=== PATIENT | female | born 1960 | race Caucasian/White ===

== ENCOUNTER → 2017-01-10 | Outpatient (CLI) | payer OTHER ==
[2017-01-10 13:31] LABS: Blood Urea Nitrogen 17 mg/dL (7-17); Non-African American GFR(MDRD) 57 (>60 ml/min/1.73 sqM)
--- NOTE | 2017-01-10 20:59 | MR ---
EXAMINATION TYPE: MR brain wo/w con DATE OF EXAM: 01/10/2017 COMPARISON: Prior MRI brain December 10, 2015 and older studies. HISTORY: malig neoplasm frontal lobe b rain per order., f/u, history of cancer and surgery 2008. TECHNIQUE: Multiplanar, multisequence images of the brain and brainstem is performed without and with IV contras t, utilizing 5 mL intravenous Gadavist . FINDINGS: Diffusion weighted images demonstrate no evidence of a recent infarct or other diffusion ab normality. There is mild ventricular and sulcal prominence consistent with mild age-related cerebral atrophy slightly prominent more prominent over bilateral frontal lobes. No significant change from p rior. There are few scattered foci of T2 hyperintensity seen throughout the deep white matter bilater ally. Lesions are nonspecific in appearance and distribution. Approximately 5-8 small scattered lesio ns are redemonstrated. There is redemonstration of area of surgical resection posterior right frontal lobe with adjacent craniotomy changes. Midline structures demonstrate normal morphology. The craniocervical junction appears within normal limits. Post contrast images demonstrate no abnormal enhancement including at surgical site to sugge st neoplastic recurrence. The dural venous sinuses appear patent. The visualized sinuses are clear an d the globes are intact. IMPRESSION: Redemonstration of postsurgical changes posterior right frontal lobe with cavitary defect and adjacent gliosis. There is background mild diffuse cerebral atrophy and chronic small vessel isc hemic change. No significant change from prior. No suspicious enhancing lesions are evident.
== END | disposition home or self-care (01) ==
LOC: RADMRIMAIN 12:56
PROVIDERS: ATTEND Neurological Surgery
DX: C71.1 Malignant neoplasm of frontal lobe (principal); G31.89 Other specified degenerative diseases of nervous system; I67.82 Cerebral ischemia; Z98.890 Other specified postprocedural states
CPT/HCPCS: 82565; 84520; 70553; 36415; A9581

== ENCOUNTER → 2018-04-02 | Outpatient (CLI) | payer OTHER ==
--- NOTE | 2018-04-02 15:57 | MR ---
EXAMINATION TYPE: MR brain wo/w con DATE OF EXAM: 04/02/2018 1:56 PM EXAMINATION TYPE: MR brain wo/w con DATE OF EXAM: 04/02/2018 1:56 PM COMPARISON: 01/10/2017 HISTORY: Malignant neoplasm of brain CONTRAST: Patient received 4.5 mL intravenous Gadavist gadolinium contrast. Multiplanar and multispin-echo imaging of the brain was performed . Pre and post contrast enhanced i mages are obtained. Again noted is evidence of postsurgical change posterior right frontal lobe with cavitary defect rede monstrated and surrounding gliosis. No evidence for pathologic enhancement. No new masses are identif ied. The ventricles, basal cisterns and sulci overlying the cerebral convexities are mildly enlarged. There is evidence of mild periventricular white matter ischemic demyelination. Remote deep white matter insults are also noted. No acute edema is seen on diffusion weighted imaging. There is no evidence for midline shift or mass effect. Acute intracranial hemorrhage or extra-axial collection is not evident. No enhancing lesions are seen. The paranasal sinuses and mastoid air cells are well-aerated. IMPRESSION: 1. No evidence for recurrent or residual mass. Postoperative changes as noted. 2. Age-related atrophic and chronic small vessel ischemic change. No acute intracranial process at t his time. No enhancing lesions are seen.
== END ==
LOC: RADMRIMAIN 12:36
PROVIDERS: ATTEND Psychiatry & Neurology Neurology
DX: G31.9 Degenerative disease of nervous system, unspecified (principal); I67.82 Cerebral ischemia; C71.1 Malignant neoplasm of frontal lobe; Z98.890 Other specified postprocedural states
CPT/HCPCS: 82565; 70553; 36415; A9585

== ENCOUNTER → 2019-08-18 | Outpatient (CLI) | payer OTHER ==
--- NOTE | 2019-08-18 14:17 | MR ---
EXAMINATION TYPE: MR brain wo/w con DATE OF EXAM: 08/18/2019 COMPARISON: 04/02/2018 HISTORY: 59-year-old female C71.9, follow-up Oligodendroglioma TECHNIQUE: Multiplanar, multisequence images of the brain and brainstem were acquired before and aft er administration of 5 mL IV Gadavist. Diffusion weighted imaging is performed. FINDINGS: No evidence for acute infarction, hemorrhage, mass, mass effect, midline shift, herniation, effacemen t of basal cisterns, or extra-axial fluid collection. Redemonstrated lateral right frontal resection cavity with surrounding bright T2 signal. Some minimal debris and septations remain within the resection cavity. No abnormal nodularity or enhancement is i dentified. No new enhancing lesions are seen. Dural venous sinuses are patent. Mild to moderate central cerebral atrophy with secondary mild prominence to the ventricular system. T2/FLAIR weighted sequences also show subtle minimal scattered foci of bright signal change within th e subcortical and periventricular regions with couple and change focus in the left cerebral hemispher e and some additional patchy change right frontal parietal junction. Midline structures demonstrate normal morphology. The craniocervical junction is normal. The visualized sinuses are clear and the globes are intact. IMPRESSION: 1. Stable lateral right frontal lobe resection cavity with surrounding gliosis. No abnormal nodularit y or enhancement to suggest recurrent neoplasm. 2. Similar moderate generalized atrophy and secondary mild ventricular prominence.
== END | disposition home or self-care (01) ==
LOC: RADMRIMAIN 12:20
PROVIDERS: ATTEND Physical Medicine & Rehabilitation
DX: G31.89 Other specified degenerative diseases of nervous system (principal); G93.89 Other specified disorders of brain
CPT/HCPCS: 70553; A9585

== ENCOUNTER → 2020-02-12 | Outpatient (CLI) | payer OTHER ==
--- NOTE | 2020-02-13 09:19 | USB ---
Reason for exam: clinical finding. History: Patient is postmenopausal, has history of high-risk lesion on a previous biopsy at age 48, and has history of breast cancer at age 47. High risk left mammotome panel of the left breast, November 06, 2008. Saline implants in both breasts, January 2008. Mastectomy of the right breast, February 2007. Excisional biopsy of the right breast, January 29, 2007. Excisional biopsy of the right breast, January 08, 2007. Benign excisional biopsy of the right breast, September 03, 2001. Benign stereotactic core biopsy of the right breast, August 26, 2001. Benign excisional biopsy of the right breast, 1992. Indicated problem(s): pain in the left breast. Physical Findings: Nurse Summary: left axilla pain x 6 months, intermittent (nurse dw). US Breast LT Left complete breast ultrasound includes all four quadrants, the retroareolar region and axilla. Finding demonstrates no cystic or solid lesion seen. These results were verbally communicated with the patient and result sheet given to the patient on 02/12/20. ASSESSMENT: Negative, BI-RAD 1 RECOMMENDATION: Clinical management of the left breast. Manage patient on a clinical basis.
== END | disposition home or self-care (01) ==
LOC: RADUSWWP 14:37
PROVIDERS: ATTEND Family Medicine
DX: M79.622 Pain in left upper arm (principal); Z85.3 Personal history of malignant neoplasm of breast

== ENCOUNTER → 2021-01-29 | Outpatient (CLI) | payer OTHER ==
--- NOTE | 2021-01-29 08:54 | MR ---
EXAMINATION TYPE: MR brain wo/w con DATE OF EXAM: 01/29/2021 COMPARISON: Most recent MRI brain August 18, 2019 and older studies HISTORY: Follow up, malignant neoplasm of brain removed 2008 TECHNIQUE: Multiplanar, multisequence images of the brain and brainstem is performed without and with IV contras t, utilizing 5 mL intravenous Gadavist . FINDINGS: Diffusion weighted images demonstrate no evidence of a recent infarct or other diffusion ab normality. Mild ventricular and sulcal prominence consistent with mild age-related cerebral atrophy s lightly more prominent over bilateral frontal lobes is redemonstrated. There are few scattered tiny f oci of T2 hyperintensity seen throughout the white matter bilaterally. Lesions are nonspecific in miladys earance and distribution. Approximately 5-8 small scattered lesions are redemonstrated. There is rede monstration of area of surgical resection with surrounding scoliosis right frontal lobe with adjacent craniotomy change. Midline structures redemonstrate normal morphology. The craniocervical junction appears within paulette l limits. Post contrast images demonstrate no abnormal enhancement including at surgical site to sug gest neoplastic recurrence. The dural venous sinuses remain patent. The visualized sinuses are clear and the globes are intact. IMPRESSION: Redemonstration of postsurgical changes right frontal lobe with cavitary defect and adjac ent gliosis. There is background mild diffuse cerebral atrophy and chronic small vessel ischemic fraser ge. No significant change from prior studies. No new suspicious enhancing lesions are evident.
--- NOTE | 2021-01-29 09:05 | MR ---
EXAMINATION TYPE: MR MRA/MRV head wo con DATE OF EXAM: 01/29/2021 COMPARISON: Prior MRA brain December 10, 2015 HISTORY: Cerebral aneurysm, non ruptured. Follow up, malignant neoplasm of brain removed 2008 TECHNIQUE: Time of flight images focusing on the Douglas of Hare were performed without contrast.. Noncontrast cerebral venous imaging. 2-D and 3-D postprocessing imaging is performed on the MRI scann er. FINDINGS: Persistent codominant vertebral arteries patent to basilar junction. No significant focal s tenosis or aneurysm in the posterior circulation. Hypoplastic bilateral posterior communicating arter ies. Anterior circulation shows persistent focal aneurysm at the right MCA trifurcation measuring 6.0 x 3. 5 mm image 125 stable from prior. Small caliber but patent anterior communicating artery. No new aneu rysm or significant focal stenosis. There is patent superior sagittal sagittal sinus. For visualization of the inferior sagittal sinus wi thout suspicious T1 hyperintense material to suggest thrombus likely congenitally hypoplastic or smal l caliber. This is better visualized patent but small caliber post contrast brain sagittal image 77. There is patent straight sinus. Patent internal cerebral vein of Greg. Patent bilateral transverse s inuses draining into sagittal sinuses and proximal internal jugular veins. IMPRESSION: 1. 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 No new aneurysms seen. 2. No evidence for deep cerebral venous thrombus.
== END | disposition home or self-care (01) ==
LOC: RADMRIMAIN 07:25
PROVIDERS: ATTEND Neurological Surgery
DX: I67.1 Cerebral aneurysm, nonruptured (principal)
CPT/HCPCS: 70553; 70544; A9585

== ENCOUNTER → 2021-03-02 | Outpatient (CLI) | payer OTHER ==
--- NOTE | 2021-03-02 11:39 | XR ---
EXAMINATION TYPE: XR abdomen complete w decub DATE OF EXAM: 03/02/2021 HISTORY: Pain. Technique: 3 views of the abdomen are submitted. Comparison: None. Findings: There is no convincing evidence of pneumoperitoneum. The Bowel gas pattern is nonspecific and nonobstructive. No sizable air-fluid levels are seen. No mass effects are noted. No renal calcifications are identified. IMPRESSION: 1. Nonspecific nonobstructive bowel gas pattern
== END | disposition home or self-care (01) ==
LOC: RADXRMAIN 11:14
PROVIDERS: ATTEND Physician Assistant Medical
DX: R10.30 Lower abdominal pain, unspecified (principal); R11.0 Nausea; R19.7 Diarrhea, unspecified
CPT/HCPCS: 74021

== ENCOUNTER 2022-02-27 07:59 | Day surgery (SDC) | payer OTHER ==
[2022-02-23 14:28] VITALS: BMI 20.1
[2022-02-27 08:33] VITALS: TEMP 98.6
[2022-02-27] MEDS ORDERED: LACTATED RINGERS 1,000 ML IV ONE (08:41)
[2022-02-27] MEDS ORDERED: LACTATED RINGERS 1,000 ML IV SCH (09:38)
[2022-02-27] MEDS ORDERED: LIDOCAINE 1% (10MG/ML) FOR IV START INTRADERMA PRN (09:38)
[2022-02-27] MEDS ORDERED: LIDOCAINE 2% INJ 20 MG/ML (2 ML VIAL) ONE (10:13)
[2022-02-27] MEDS ORDERED: PROPOFOL 10 MG/ML 20 ML VIAL IV ONE (10:13)
--- NOTE | 2022-02-27 10:27 | P.PCN ---
Date of Procedure: 02/27/22 Procedure(s) Performed: BRIEF HISTORY: Patient is a 61-year-old, pleasant, white female scheduled for an upper endoscopy as a part of evaluation of GERD and intermittent dysphagia to solids.. She has intermittent dysphagia with pills the last episode was 2 weeks ago. PROCEDURE PERFORMED: Esophagogastroduodenoscopy with biopsy. PREOPERATIVE DIAGNOSIS: GERD and intermittent dysphagia to solids. IV sedation per anesthesia. PROCEDURE: After informed consent was obtained, the patient was brought into the endoscopy unit. IV sedation was administered by Anesthesia under continuous monitoring. Initially the Olympus GIF-140 video endoscope was inserted into the mouth. Esophagus intubated without any difficulty. It was gradually advanced into the stomach and duodenum and carefully examined. The bulb and the second part of the duodenum appeared normal. The scope at this time was withdrawn to the stomach, adequately insufflated with air, and upon careful examination, mucosa of the antrum, and mild gastritis and biopsies were done from this area. The body, cardia and the fundus appeared normal. The scope was then withdrawn into the esophagus. The GE junction was located at 39 cm from the incisors. Small sliding type hiatal hernia noted. There was a distal esophageal stricture identified and this was dilated with the passage of scope. The mid and distal esophagus had multiple mucosal rings with thickened esophageal folds suspicious for years of age esophagitis and biopsies were done from the mid and distal esophagus. The proximal esophagus appeared normal. There were no erosions or ulcerations seen and the patient tolerated the procedure well. IMPRESSION: 1. Distal esophageal stricture status post dilation with passage of the scope. 2. Multiple superficial mucosal rings with thickened esophageal folds in the mid and distal esophagus suspicious for eosinophilic esophagitis status post multiple biopsies 3. Small hiatal hernia 4. Mild gastritis. RECOMMENDATIONS: The findings of this examination were discussed with the patient as well as a her family. She was advised to increase the Protonix to 40 mg twice daily and follow antireflux measures. Follow with the biopsy results. Follow up in office in 3-4 weeks.
[2022-02-27 10:48] VITALS: BP 126/68; PULSE 50; RESP 16
== END 2022-02-27 11:26 | disposition home or self-care (01) ==
LOC: ORWHC2ENDO 07:59
PROVIDERS: ATTEND Internal Medicine Gastroenterology
DX: K29.50 Unspecified chronic gastritis without bleeding (principal); K44.9 Diaphragmatic hernia without obstruction or gangrene; K22.2 Esophageal obstruction; K21.9 Gastro-esophageal reflux disease without esophagitis
CPT/HCPCS: 43239; J2704; J2001

== ENCOUNTER → 2022-09-13 | Outpatient (CLI) | payer OTHER ==
--- NOTE | 2022-09-13 21:52 | MR ---
EXAMINATION TYPE: MR brain wo/w con DATE OF EXAM: 09/13/2022 9:39 PM CLINICAL INDICATION:Female, 62 years old with history of C71.9; Removal of brain cancer, Hx of brain and breast cancer COMPARISON: 01/29/2021 TECHNIQUE: Multi planar, multi sequence imaging was performed through the brain including: T1, T2, In version recovery, susceptibility weighted imaging and gradient echo imaging and Diffusion weighted im aging. The patient was then given intravenous contrast and multi planar, T1 fat-saturation images wer e obtained. IV Contrast: 5 cc Gadavist FINDINGS: Postsurgical changes to the right frontal lobe. Overall the morphology of the surgical bed is similar to prior in 2020. No abnormal postcontrast enhancement on today's exam. No additional areas outside the surgical bed of enhancement identified. With minimally increased surrounding high T2 signal in th e white matter. Scattered additional punctate white matter high T2 signal throughout the cerebrum. Diffusion-weighted imaging shows no evidence of restricted diffusion to suggest acute/subacute infarc t. Intracranial arterial flow voids are maintained. Midline structures show no abnormality. Scattered foci of high T2 signal intensity are seen within the periventricular white matter. The susceptibilit y weighted images do not reveal any evidence for micro-hemorrhage. There is mild blooming artifact wi thin the surgical bed compatible with hemosiderin deposition. The bone marrow signal is within normal limits. Paranasal sinuses and mastoid air cells: No significant paranasal sinus disease. Visualized orbits: Bilaterally aphakia. IMPRESSION: 1. Postsurgical changes without evidence for abnormal enhancement. Morphology of the surgical bed rena ssly stable with mild increased surrounding gliosis. No evidence of intracranial mass, acute/subacute infarct, or abnormal enhancement. 2. Nonspecific white matter changes, likely related to small vessel ischemic disease
== END | disposition home or self-care (01) ==
LOC: RADMRIMAIN 21:00
PROVIDERS: ATTEND Neurological Surgery
DX: C71.9 Malignant neoplasm of brain, unspecified (principal); R90.82 White matter disease, unspecified; Z85.3 Personal history of malignant neoplasm of breast; Z98.890 Other specified postprocedural states
CPT/HCPCS: 70553; A9585

== ENCOUNTER → 2024-05-19 | Outpatient (CLI) | payer MEDICARE, OTHER ==
--- NOTE | 2024-05-19 17:08 | MR ---
EXAMINATION TYPE: MR MRA/MRV head wo con DATE OF EXAM: 05/19/2024 4:31 PM COMPARISON: 01/29/2021. CLINICAL INDICATION: Female, 64 years old with history of C71.9 MALIGNANT NEOPLASM OF BRAIN, UNSPECIF IED; PHH, f/u malignant neoplasm of brain with surgery history. history of breast cancer. TECHNIQUE: MRA brain: 3-D [id number] Axial with MIP and 3-D reconstruction performed on a separate workstati on. MRV of the brain: performed utilizing two-dimensional [id number] technique MIP and 3-D reconstruc tion. Performed on a separate workstation. IV Contrast: mL (None, if empty) Findings: Vertebral arteries: The vertebral arteries are patent. The right vertebral artery is dominant. Basilar artery: The basilar artery is intact. The basilar artery bifurcation is normal. Internal Carotid arteries: The cervical, petrous, cavernous and supraclinoid segments are normal. TOBY: Patent without evidence of aneurysm. ACOM: Patent without evidence of aneurysm. MCA: Right M2 saccular aneurysm measuring 6 x 4 mm. Patent without evidence of aneurysm. CASKET TRIMMER: Patent without evidence of aneurysm. PCOM: Hypoplastic bilaterally. There is no evidence of venous occlusion or collateral circulation. There is no evidence of sinus th rombosis. Type I vascular loop on the left and internal auditory canal and type II vascular loop on the right. IMPRESSION: 1. No evidence of venous sinus thrombosis. 2. Right M2 segment saccular aneurysm measuring 6 x 4 mm stable back to 2020. 3. Type I vascular loop on the left with vessel entering the internal auditory canal and type II vas cular loop on the right into canal 50% of the canal [facility], , 05/19/2024 5:05 PM
--- NOTE | 2024-05-19 21:03 | MR ---
EXAMINATION TYPE: MR brain wo/w con DATE OF EXAM: 05/19/2024 4:50 PM COMPARISON: 05/19/2024 CLINICAL INDICATION: Female, 64 years old with history of C71.9 MALIGNANT NEOPLASM OF BRAIN, UNSPECIF IED; PHH, f/u malignant neoplasm of brain with surgery history. history of breast cancer. TECHNIQUE: Multi planar, multi sequence imaging was performed through the brain including: T1, T2, In version recovery, susceptibility weighted imaging and gradient echo imaging and Diffusion weighted im aging. The patient was then given intravenous contrast and multi planar, T1 fat-saturation images wer e obtained. IV Contrast: 5 mL Gadobutrol FINDINGS: Postprocedural changes left frontal lobe no evidence for abnormal postcontrast enhancement stable appearance. Mild encephalomalacia in the right frontal lobe noted. No new areas of abnormal p ostcontrast enhancement. The bustos-white junctions, ventricular system, basal cisterns appear unremark able. Diffusion-weighted imaging shows no evidence of restricted diffusion to suggest acute/subacute infarct. Intracranial arterial flow voids are maintained. Midline structures show no abnormality. Sc attered foci of high T2 signal intensity are seen within the periventricular white matter. The suscep tibility weighted images do not reveal any evidence for micro-hemorrhage. After administration of kadie olinium, no abnormal enhancement is seen. The bone marrow signal is within normal limits. Paranasal sinuses and mastoid air cells: No significant paranasal sinus disease. Visualized orbits: Orbital contents are intact. IMPRESSION: 1. Postprocedural changes left frontal lobe no evidence for abnormal postcontrast enhancement stable appearance. 2. No evidence of intracranial mass, acute/subacute infarct, or abnormal enhancement. 3. Nonspecific white matter changes, likely related to small vessel ischemic disease. [facility], , 05/19/2024 9:01 PM
== END | disposition home or self-care (01) ==
LOC: RADMRIMAIN 15:44
PROVIDERS: ATTEND Neurological Surgery
DX: C71.9 Malignant neoplasm of brain, unspecified (principal); I67.1 Cerebral aneurysm, nonruptured; Q14.2 Congenital malformation of optic disc; R90.82 White matter disease, unspecified; Z98.890 Other specified postprocedural states
CPT/HCPCS: 70553; 70544; A9585

== ENCOUNTER → 2024-07-03 | Outpatient (CLI) | payer MEDICARE, OTHER ==
--- NOTE | 2024-07-03 15:58 | BD ---
EXAMINATION TYPE: Axial Bone Density DATE OF EXAM: 07/03/2024 CLINICAL HISTORY: 64 years old Female. ICD-10 CODE: M85.89 DISRD OF BONE DENSITY AND STRUCTURE , Add itional History: Height: 60 Weight: 116.8 FRAX RISK QUESTIONS: Alcohol (3 or more units per day): no Family History (Parent hip fracture): no Glucocorticoids (More than 3mos): no (Ex: prednisone, prednisolone, methylprednisolone, dexamethasone, and hydrocortisone). History of Fracture in Adulthood: no Secondary Osteoporosis: 1. Type 1 Diabetes: no 2. Hyperthyroidism: no 3. Menopause before 45: no 4. Malnutrition: no 5. Chronic liver disease: no Rheumatoid Arthritis: no Current Tobacco Use: yes RISK FACTORS HISTORY OF: Surgery to Spine/Hip(right/left)/Wrist (right/left): no EXAM MEASUREMENTS: Bone mineral densitometry was performed using the [employer] System. Bone mineral density as measured about the Lumbar spine is: ----- L1-L4(G/cm2): 0.976 T Score Values are as follows: ----- L1: -1.5 ----- L2: -1.3 ----- L3: -1.4 ----- L4: -2.6 ----- L1-L4: -1.7 Z Score Values are as follows: ----- L1: 0.5 ----- L2: 0.7 ----- L3: 0.6 ----- L4: -0.6 ----- L1-L4: 0.3 Bone mineral density : baseline Bone mineral density about the R hip (g/cm2): 0.822 Bone mineral density about the L hip (g/cm2): 0.757 T Score values are as follows: -----R Neck: -1.6 -----L Neck: -2.0 -----R Total: -1.5 -----L Total: -2.0 Z Score values are as follows: -----R Neck: 0.1 -----L Neck: -0.3 -----R Total: 0.0 -----L Total: -0.5 Bone mineral density : baseline FRAX%s: The graph provided illustrates a 10.2% chance for a major osteoporotic fx and a 2.7% chance f or the hips probability for fx in 10 years time. IMPRESSION: Osteopenia (T Score between -2.5 and -1). There is slightly increased risk of fracture and the patient may be considered for treatment. Re-Screen 2-5 years. NOTE: T-SCORE=SD OF THE YOUNG ADULT MEAN. [facility], , 07/03/2024 3:56 PM
== END | disposition home or self-care (01) ==
LOC: RADBDWWP 15:11
PROVIDERS: ATTEND Family Medicine
DX: M85.89 Other specified disorders of bone density and structure, multiple sites (principal)
CPT/HCPCS: 77080